=== PATIENT | male | born 1975 | race Caucasian/White ===

== ENCOUNTER 2019-06-25 11:15 | Outpatient (CLI) | payer OTHER ==
--- NOTE | 2019-06-25 11:36 | RAD ---
Exam: 3 views lumbar spine HISTORY: Bilateral lower extremity numbness. FINDINGS: 5 lumbar type vertebra. Preserved vertebral body heights. Disc space heights are preserved. No spondylolisthesis or spondylolysis. IMPRESSION: Unremarkable 3 views lumbar spine
== END 2019-06-25 11:16 | disposition home or self-care (01) ==
LOC: BICRAD 11:15
PROVIDERS: ATTEND Family Medicine
DX: R20.0 Anesthesia of skin (principal)
CPT/HCPCS: 72100

== ENCOUNTER 2022-02-01 09:02 | Outpatient (CLI) | payer BC | END 2022-02-01 09:03 | disposition home or self-care (01) | LOC: RAD 09:02 | PROVIDERS: ATTEND Nurse Practitioner Family | DX: Z87.891 Personal history of nicotine dependence (principal) | CPT/HCPCS: 71046 ==

== ENCOUNTER 2023-08-21 13:47 | Outpatient (CLI) | payer BC | END 2023-08-21 13:48 | disposition home or self-care (01) | LOC: BICRAD 13:47 | PROVIDERS: ATTEND Family Medicine | DX: M79.672 Pain in left foot (principal) ==